=== PATIENT | female | born 1965 | race Caucasian/White ===

== ENCOUNTER 2019-07-08 22:06 | Emergency (ER) | payer OTHER ==
[~2019-07-08] VITALS: Ht 149.9 cm; Wt 79.0 kg
[~2019-07-08 22:06] MED LIST: PERCOCET
[2019-07-08] MEDS ORDERED: KETOROLAC 30MG/ML VIAL IM ONE (22:45)
[2019-07-08] MEDS ORDERED: IBUPROFEN 600MG TABLET PO ONE (22:45)
[2019-07-09 01:27] VITALS: BP 135/89
== END 2019-07-09 01:47 | disposition home or self-care (01) ==
LOC: ER 22:06
DX: S69.82XA Other specified injuries of left wrist, hand and finger(s), initial encounter (principal); R07.89 Other chest pain; R07.81 Pleurodynia; M25.552 Pain in left hip; M79.642 Pain in left hand; M25.531 Pain in right wrist; R03.0 Elevated blood-pressure reading, without diagnosis of hypertension; Y04.8XXA Assault by other bodily force, initial encounter; Y93.89 Activity, other specified; Y92.512 Supermarket, store or market as the place of occurrence of the external cause
CPT/HCPCS: 29125; 71101; 73110; 73130; 73502; 96372; 99283; J1885; A4565